=== PATIENT | male | born 1950 | race Caucasian/White ===

== ENCOUNTER 2016-09-19 12:39 | Outpatient (RCR) | payer MEDICARE, OTHER ==
[~2016-09-19 12:39] MED LIST: AMIT10TA6 PO; AMOX-358 PO; ASPI-504 PO; BUPR100T6 PO; CALC500T55 PO; CHOL10002 PO; EZET1TAB16 PO; FLC1T PO; HYDR-2997 PO; LISI1TAB8 PO; METH2.5T PO; METO-270 PO; MULT1CAP27 PO; NFLYR75C PO; OMEG10005 PO; PRED5TAB PO; ZOLP10TA PO
== END 2016-12-18 | disposition home or self-care (01) ==
LOC: PT 12:39
PROVIDERS: ATTEND Internal Medicine
DX: Z53.9 Procedure and treatment not carried out, unspecified reason (principal)

== ENCOUNTER → 2016-10-31 | Outpatient (CLI) | payer MEDICARE, OTHER ==
[2016-10-31 08:07] LABS: BASOPHILS % (AUTO) 0 % (0-2); EOSINOPHILS # (AUTO) 0.1 10^3uL; EOSINOPHILS % (AUTO) 1 % (0-4); LYMPHOCYTES # (AUTO) 0.9 X10^3; MEAN PLATELET VOLUME 9.7 FL (6.0-9.5); MONOCYTES # (AUTO) 0.4 X10^3; MONOCYTES % (AUTO) 6 % (3-11); NEUTROPHILS # (AUTO) 4.9 X10^3; NEUTROPHILS % (AUTO) 77 % (51-67); PLATELET COUNT 212 10^3uL (150-450); WHITE BLOOD COUNT 6.33 10^3uL (4.0-11.0)
[2016-10-31 08:08] LABS: MEAN CORPUSCULAR VOLUME 100 FL (80-100)
[2016-10-31 08:28] LABS: ALBUMIN 3.8 g/dL (3.4-5.0); ANION GAP 16.1 MEQ/L (3-15); CALCULATED IONIZED CALCIUM 4.1 mg/dL (3.8-4.6); TOTAL PROTEIN 6.5 g/dL (6.4-8.5)
== END ==
LOC: LAB 07:53
PROVIDERS: ATTEND Internal Medicine
DX: Z00.00 Encounter for general adult medical examination without abnormal findings (principal); I10 Essential (primary) hypertension; M54.5 Low back pain; Z87.39 Personal history of other diseases of the musculoskeletal system and connective tissue; Z12.5 Encounter for screening for malignant neoplasm of prostate; D64.9 Anemia, unspecified
CPT/HCPCS: 36415; 80053; 80061; 84443; 85025; G0103; 84153

== ENCOUNTER → 2016-11-14 | Outpatient (CLI) | payer MEDICARE, OTHER | LOC: RAD 08:36 | PROVIDERS: ATTEND Internal Medicine | DX: M85.89 Other specified disorders of bone density and structure, multiple sites (principal) | CPT/HCPCS: 77080 ==

== ENCOUNTER → 2016-11-24 | Outpatient (CLI) | payer MEDICARE, OTHER | LOC: RAD 11:34 | PROVIDERS: ATTEND Internal Medicine | DX: M54.5 Low back pain (principal) | CPT/HCPCS: 72158; A9579 ==

== ENCOUNTER → 2016-11-27 | Outpatient (CLI) | payer MEDICARE, OTHER ==
[2016-11-27 09:10] LABS: MEAN CORPUSCULAR HGB CONC 32.2 g/dL (31.0-37.0); MEAN PLATELET VOLUME 9.3 FL (6.0-9.5); WHITE BLOOD COUNT 5.98 10^3uL (4.0-11.0)
[2016-11-27 11:09] LABS: ALBUMIN 3.8 g/dL (3.4-5.0); ANION GAP 11.9 MEQ/L (3-15); CALCULATED IONIZED CALCIUM 4.1 mg/dL (3.8-4.6); TOTAL PROTEIN 6.5 g/dL (6.4-8.5)
== END ==
LOC: LAB 08:59
PROVIDERS: ATTEND Internal Medicine Rheumatology
DX: M06.09 Rheumatoid arthritis without rheumatoid factor, multiple sites (principal)
CPT/HCPCS: 36415; 80053; 85027; 85652

== ENCOUNTER → 2016-12-11 | Outpatient (CLI) | payer MEDICARE, OTHER ==
[2016-12-11 09:04] LABS: BASOPHILS % (AUTO) 1 % (0-2); EOSINOPHILS # (AUTO) 0.1 10^3uL; EOSINOPHILS % (AUTO) 3 % (0-4); LYMPHOCYTES # (AUTO) 1.1 X10^3; MEAN CORPUSCULAR HEMOGLOBIN 33.2 PG (26.0-34.0); MEAN CORPUSCULAR HGB CONC 32.5 g/dL (31.0-37.0); MEAN CORPUSCULAR VOLUME 102 FL (80-100); MEAN PLATELET VOLUME 9.4 FL (6.0-9.5); MONOCYTES # (AUTO) 0.3 X10^3; MONOCYTES % (AUTO) 7 % (3-11); NEUTROPHILS # (AUTO) 2.5 X10^3; NEUTROPHILS % (AUTO) 61 % (51-67); PLATELET COUNT 206 10^3uL (150-450); WHITE BLOOD COUNT 4.17 10^3uL (4.0-11.0)
[2016-12-11 09:33] LABS: ALBUMIN 4.1 g/dL (3.4-5.0); ANION GAP 16.2 MEQ/L (3-15); PHOSPHORUS 3.8 mg/dL (2.4-4.9)
== END ==
LOC: LAB 08:53
PROVIDERS: ATTEND Internal Medicine
DX: N18.3 Chronic kidney disease, stage 3 (moderate) (principal); D63.8 Anemia in other chronic diseases classified elsewhere; M85.88 Other specified disorders of bone density and structure, other site
CPT/HCPCS: 36415; 80069; 82306; 85025

== ENCOUNTER → 2016-12-19 | Outpatient (CLI) | payer MEDICARE, OTHER ==
--- NOTE | 2016-12-19 13:21 | Diagnostic Imaging Report ---
INDICATION: Renal cyst noted on outside CT scan. COMPARISON: The outside CT scan is not available for comparison. FINDINGS: The right kidney measures 8.9 x 4.7 x 5.2 cm. The cortex appears normal with no masses. No hydronephrosis. No calculi. The left kidney measures 11.3 x 4.8 cm. There is a benign cortical cyst present measuring 5 x 4 cm. There is also a second cyst measuring 3 x 3 cm. No solid masses are seen. No hydronephrosis. IMPRESSION: There are two cysts present in the left kidney with the largest measuring 5 cm. These do have a benign appearance. Dictated by: Dictated on workstation # [id number]
== END ==
LOC: RAD 08:46
PROVIDERS: ATTEND Internal Medicine
DX: N28.1 Cyst of kidney, acquired (principal)
CPT/HCPCS: 76770

== ENCOUNTER → 2017-01-18 | Outpatient (CLI) | payer MEDICARE, OTHER ==
--- NOTE | 2017-01-18 17:19 | Diagnostic Imaging Report ---
INDICATION: Exacerbation of COPD. EXAMINATION: PA and lateral chest. FINDINGS: There is cardiomegaly with mild pulmonary vascular congestion and some interstitial edema. There is no effusion. IMPRESSION: Mild congestive heart failure. Dictated by: Dictated on workstation # [id number]
== END ==
LOC: RAD 15:42
PROVIDERS: ATTEND Internal Medicine
DX: J44.1 Chronic obstructive pulmonary disease with (acute) exacerbation (principal); I50.9 Heart failure, unspecified
CPT/HCPCS: 71020

== ENCOUNTER → 2017-01-22 | Outpatient (CLI) | payer MEDICARE, OTHER ==
--- NOTE | 2017-01-22 13:33 | Diagnostic Imaging Report ---
INDICATION: Difficulty breathing. Two views. COMPARISON: 01/18/2017 FINDINGS: Today's radiograph is more inspiratory. The cardiomediastinal silhouette is normal. The kenia are within normal limits. The lungs showed no alveolar infiltrate or mass. A few interstitial changes are seen in the bases which may be chronic. Old right rib fractures are present and there is chronic deformity of the right acromioclavicular joint. IMPRESSION: 1. Few areas of interstitial change in the lung bases which may be chronic rather than acute. Otherwise negative study. Dictated by: Dictated on workstation # [id number]
== END ==
LOC: RAD 12:45
PROVIDERS: ATTEND Internal Medicine
DX: I50.9 Heart failure, unspecified (principal); J40 Bronchitis, not specified as acute or chronic
CPT/HCPCS: 71020

== ENCOUNTER 2017-01-25 06:28 | Day surgery (SDC) | payer MEDICARE, OTHER ==
[~2017-01-25] VITALS: Ht 177.8 cm; Wt 70.5 kg
[~2017-01-25 06:28] MED LIST changes: +LACTATED RINGERS 1,000 ML IV ONE; +SODIUM CHLORIDE FLUSH 3 ML SYR ONE
--- OUTSIDE RECORDS SUMMARY | 2017-01-25 06:32 | XMS REPORT | Continuity of Care Document ---
Author Author [facility] Organization [facility] Address Unknown Phone Unavailable Care Team Providers Care Retail Advisor Name Role Phone NYA CABRALES MD PCP [phone] Insurance Providers Payer Name Policy Number Subscriber Name Relationship [facility] [id number] Nilson Campbell 20 Self / Same As Patient Chief Complaint and Reason for Visit Chief Complaint Pain Reason for Visit Chronic back pain Rheumatoid arthritis Problems Medical Problems Problem Onset Date Status Endoscopy of urinary bladder Unknown Resolved Dog bite ~12/20/2014 Active Chronic back pain Unknown Active Rheumatoid arthritis Unknown Active Medications Medication Dose Route Sig Days/Qty Instructions Order Date Discontinued Date Status Zolpidem Tartrate 10 Mg ORAL BEDTIME 10/31/13 Active Hydrocodone Bit/Acetaminophen 2 Tab ORAL THREE TIMES A DAY 10/31/13 Active Aspirin 81 Mg ORAL TWICE A DAY 10/31/13 Active Bupropion Hcl 100 Mg ORAL DAILY 10/31/13 Active Ezetimibe/Simvastatin 0.5 Tab ORAL EVERY OTHER DAY 10/31/13 Active Prednisone 5 Mg ORAL DAILY 10/31/13 Active Laurel-3 Fatty Acids 1,000 Mg ORAL DAILY 10/31/13 Active Metoprolol Succinate 0.5 Tab ORAL DAILY 10/31/13 Active Multivitamin 1 Each ORAL DAILY 10/31/13 Active Amitriptyline Hcl 10 Mg ORAL DAILY 10/31/13 12/20/14 Discontinued Calcium Carbonate 500 Mg ORAL DAILY 10/31/13 Active Pregabalin 75 Mg ORAL TWICE A DAY 05/06/14 Active Folic Acid 1 Mg ORAL DAILY 05/06/14 Active Methotrexate Sodium 3 Tab ORAL TU/SAT 05/06/14 Active Lisinopril/Hydrochlorothiazide 1 Each ORAL DAILY 12/20/14 Active Cholecalciferol 1,000 Unit ORAL TWICE A DAY 12/20/14 Active Amoxicillin/Potassium Clav 1 Each ORAL TWICE A DAY 19 Qty 12/20/14 Active Social History No social history. Hospital Discharge Instructions No hospital discharge instructions. Plan of Care Discharge Date 01/05/15 9:15pm Disposition 01 HOME OR SELF-CARE Condition at Discharge Stable Instructions/Education Provided Hydrocodone/Acetaminophen (By mouth) Chronic Pain Management (ED) Prescriptions See Medications Section Referrals NYA CABRALES MD Additional Instructions/Education Contact Dr. Cabrales's office in the morning to get your pain medication refilled. Some of your test results may not be complete prior to your leaving the Emergency Department. The Emergency Department is not authorized to give test results over the phone. Please contact the doctor's office listed in this packet of information for your final results. Follow up with your primary care physician or return to the Emergency Department for worsening or worrisome symptoms. * Emergency Department phone number: [phone], x [phone]* MEDICAL RECORD If you need copies of your X-rays, call [phone]. If you need copies of your medical record, including lab results, a signed authorization for release of records will be required. A telephone call for release of Health Information is not allowed. BILLING Billing can sometimes be confusing and frustrating. To help avoid confusion in the future, please take a moment to acquaint yourself with the billing parties for services. SERVICE BILLING LIBERTARIAN Emergency Room Services [facility] Physician Services [facility] X-rays [facility] Patients will receive bills for services from the appropriate provider. If you have any questions about your [facility] bill, our staff will be happy to assist you. Please call [phone], and ask for the billing department. THANK YOU for choosing [facility] as your emergency care provider! Functional Status No functional status results. Allergies, Adverse Reactions, Alerts Allergen Type Severity Reaction Status Last Updated No Known Drug Allergies Active 10/31/13 Immunizations Name Given Type Status Tdap 12/20/14 Administered Completed Vital Signs Acute Vital Signs Vital Response Date/Time Temperature (Fahrenheit) 98.0 Pulse 75 bpm Respirations 18 Height 5 ft 9 in Weight 159 lb Body Mass Index 23.0 kg/m^2 Results Test Source Date Result Interp. Ref. Range Comments Alanine Aminotransferase (ALT/SGPT) December 28, 2014 9:47am 40 U/L N 30- 65 Albumin December 28, 2014 9:47am 3.9 g/dL N 3.4-5.0 Albumin/Globulin Ratio December 28, 2014 9:47am 1.444 N 1.1-1.8 Alkaline Phosphatase December 28, 2014 9:47am 77 U/L N 38-126 Anion Gap December 28, 2014 9:47am 12.2 MEQ/L N 3-15 Aspartate Amino Transf (AST/SGOT) December 28, 2014 9:47am 35 U/L N 15-37 BUN/Creatinine Ratio December 28, 2014 9:47am 22 H 10-20 Basophils # (Auto) December 28, 2014 9:47am 0.0 10^3uL Basophils (%) (Auto) December 28, 2014 9:47am 0 % N 0-2 Blood Urea Nitrogen December 28, 2014 9:47am 24 mg/dL H 7-18 Calcium Level December 28, 2014 9:47am 8.9 mg/dL N 8.8-10.8 Calcium/Ionized Calcium Ratio December 28, 2014 9:47am 4.1 mg/dL N 3.8-4.6 Calculated Osmolality December 28, 2014 9:47am 284 mosm/L N 280-300 Carbon Dioxide Level December 28, 2014 9:47am 28 mmol/L N 22-29 Chloride Level December 28, 2014 9:47am 107 mmol/L N 98-108 Cholesterol Level October 23, 2014 7:38am 141 mg/dL N 50-200 Cholesterol Risk Factor October 23, 2014 7:38am 2.3 N 0.0-5.0 Creatinine December 28, 2014 9:47am 1.08 mg/dL N 0.8-1.5 Differential Total Cells Counted July 17, 2012 7:41am 100 Eosinophils # (Auto) December 28, 2014 9:47am 0.1 10^3uL Eosinophils % July 17, 2012 7:41am 2 % N 0-5 Eosinophils (%) (Auto) December 28, 2014 9:47am 1 % N 0-4 Erythrocyte Sedimentation Rate November 06, 2014 9:47am 21 mm/hr H 0-19 Estimat Glomerular Filtration Rate December 28, 2014 9:47am 83.8 Estimated GFR (Non- December 28, 2014 9:47am 69.3 Glucose Level December 28, 2014 9:47am 129 mg/dL H 70-110 HDL Cholesterol October 23, 2014 7:38am 62 mg/dL H 40-60 HDL Triglycerides October 23, 2014 7:38am 74 mg/dL N 10-150 Hematocrit December 28, 2014 9:47am 40.00 % N 39.00-50.00 Hemoglobin December 28, 2014 9:47am 13.0 g/dL L 13.5-17.0 LDL Cholesterol (Measured) October 23, 2014 7:38am 64 mg/dL N 50-130 LDL Cholesterol, Calculated September 16, 2013 7:32am 71 mg/dL 0-130 Lymphocytes # (Auto) December 28, 2014 9:47am 1.3 X10^3 Lymphocytes % July 17, 2012 7:41am 14 % L 16-34 Lymphocytes (%) (Auto) December 28, 2014 9:47am 18 % L 20-46 Mean Corpuscular Hemoglobin December 28, 2014 9:47am 32.8 PG N 26.0-34.0 Mean Corpuscular Hemoglobin Concent December 28, 2014 9:47am 32.5 g/dL N 31.0-37.0 Mean Corpuscular Volume December 28, 2014 9:47am 101 FL H 80-100 Mean Platelet Volume December 28, 2014 9:47am 8.7 FL N 6.0-9.5 Monocytes # (Auto) December 28, 2014 9:47am 0.5 X10^3 Monocytes % July 17, 2012 7:41am 5 % N 2-12 Monocytes (%) (Auto) December 28, 2014 9:47am 7 % N 3-11 Neutrophils # (Auto) December 28, 2014 9:47am 5.5 X10^3 Neutrophils (%) (Auto) December 28, 2014 9:47am 73 % H 51-67 Platelet Count December 28, 2014 9:47am 223 10^3uL N 150-450 Potassium Level December 28, 2014 9:47am 3.8 mmol/L DN 3.5-5.1 Prostate Specific Antigen October 23, 2014 7:38am 0.7 ng/mL 0.0-4.5 AUA PSA Best Practice Guidelines: Age-Adjusted PSA Values by Ethnic Group Age Range Asians - Caucasians Americans 40-49 0-2.0 0-2.0 0-2.5 50-59 0-3.0 0-4.0 0-3.5 60-69 0-4.0 0-4.5 0-4.5 70-79 0-5.0 0-5.5 0-6.5 Red Blood Count December 28, 2014 9:47am 3.96 10^6uL L 4.50-5.50 Red Cell Distribution Width December 28, 2014 9:47am 14.8 % N 11.8-15.6 Segmented Neutrophils % July 17, 2012 7:41am 79 % H 50-70 Sodium Level December 28, 2014 9:47am 144 mmol/L N 135-150 Thyroid Stimulating Hormone (TSH) October 23, 2014 7:38am 1.51 UIU/ML N 0.46-4.68 Total Bilirubin December 28, 2014 9:47am 0.3 mg/dL N 0.1-1.0 Total Protein December 28, 2014 9:47am 6.6 g/dL N 6.4-8.5 Triglycerides Level September 16, 2013 7:32am 53 mg/dL 0-149 Uric Acid October 23, 2014 7:38am 6.0 MG/DL N 3.8-7.1 Urine Bacteria February 17, 2014 9:30am Rare /HPF Urine Bilirubin September 18, 2013 10:30am Negative Negative Urine Blood September 18, 2013 10:30am 1+ H Negative Urine Clarity September 18, 2013 10:30am Clear Urine Collection Type September 18, 2013 10:30am Clean catch Urine Color September 18, 2013 10:30am Hooper Urine Glucose (UA) September 18, 2013 10:30am Negative Negative Urine Ketones September 18, 2013 10:30am Trace H Negative Urine Leukocyte Esterase September 18, 2013 10:30am Negative Negative Urine Mucus February 17, 2014 9:30am 2+ H Urine Nitrite September 18, 2013 10:30am Negative Negative Urine Protein September 18, 2013 10:30am Negative Negative Urine RBC February 17, 2014 9:30am 10-20 /HPF H Urine Specific [place] September 18, 2013 10:30am >=1.030 1.005-1.030 Urine Squamous Epithelial Cells September 18, 2013 10:30am 0-2 /LPF Urine Urobilinogen September 18, 2013 10:30am 0.2 mg/dL 0.2-1.0 Urine WBC February 17, 2014 9:30am None seen /HPF Urine pH September 18, 2013 10:30am 5.5 5.0 - 8.0 VLDL Cholesterol October 23, 2014 7:38am 15 mg/dL N 4.00-40.00 Vitamin B12 Level September 16, 2013 7:32am 470 pg/mL 213-816 Volume Urine Centrifuged February 17, 2014 9:30am 12 ml White Blood Count December 28, 2014 9:47am 7.51 10^3uL N 4.0-11.0 Procedures Procedure Status Date Provider(s) MRI LUMBAR SPINE W/O & W/DYE completed 12/29/14 completed 12/29/14 CT THORAX W/O DYE completed 12/24/14 IMMUNIZATION ADMIN completed 12/20/14 TDAP VACCINE 7 YRS/> IM completed 12/20/14 EMERGENCY DEPT VISIT completed 12/20/14 ROUTINE VENIPUNCTURE completed 12/28/14 COMPREHEN METABOLIC PANEL completed 12/28/14 COMPLETE CBC W/AUTO DIFF WBC completed 12/28/14 Encounters Encounter Location Date/Time Registered Emergency Room [facility] 01/05/15 8:03pm Registered [facility] 01/05/15 10:00am Registered Clinic [facility] 12/29/14 10:15am Registered Clinic [facility] 12/28/14 9:34am Registered [facility] 12/24/14 11:11am Departed Emergency Room [facility] 12/20/14 6:45pm Recent Diagnosis
[2017-01-25 06:36] VITALS: BP 133/74
[2017-01-25] MEDS ORDERED: MIDAZOLAM 2 MG/2 ML (VERSED) VIAL ONE (07:19)
[2017-01-25] MEDS ORDERED: ALFENTANIL 500 MCG/ML (ALFENTA) 5 ML AMP IV ONE (07:19)
[2017-01-25] MEDS ORDERED: PROPOFOL 20 ML IV ONE (07:19)
[2017-01-25 08:05] VITALS: BP 147/93
[2017-01-25 08:18] VITALS: BP 139/76
--- NOTE | 2017-01-25 09:31 | OPERATIVE REPORT ---
DATE OF OPERATION: 01/25/2017 PRE-OPERATIVE DIAGNOSIS: Screening colonoscopy. POST-OPERATIVE DIAGNOSIS: Mild sigmoid diverticulosis. OPERATIVE PROCEDURE: Total colonoscopy. SURGEON: Serge Adams MD ANESTHESIA: Monitored anesthesia care. FINDINGS: 1. The bowel prep was good. 2. No neoplasia, angiodysplasia, or inflammation were seen. 3. There are a few scattered diverticula in the sigmoid colon. INDICATION: Mr. Campbell is a 66-year-old referred by Dr. Cabrales for colonoscopy screening. He has not had any bowel habit changes and his family history is negative for colorectal cancer. DESCRIPTION OF PROCEDURE: The patient was informed of the risks and benefits and agreed to proceed. He was placed in the left lateral decubitus position and was administered IV sedation. When properly sedated a rectal exam was performed, which was normal. The lighted endoscope was passed into the rectum and slowly advanced along the colon to the cecum. The ileocecal valve and the appendiceal orifice were easily seen. The scope was slowly brought back through the ascending, transverse, descending, and sigmoid colon. No polyps or neoplasia were seen. There were diverticula seen in the sigmoid region. The rectum appeared normal on regular view and retroflexion. The scope was removed completing the procedure. The patient tolerated the procedure without complications. With this normal colonoscopy, I recommend a repeat screening colonoscopy in 10 years.
[2017-01-26] MEDS ORDERED: LACTATED RINGERS 1,000 ML IV SCH (05:00)
[2017-01-26] MEDS ORDERED: SODIUM CHLORIDE FLUSH 3 ML SYR IV PRN (05:00)
== END 2017-01-25 08:21 | disposition home or self-care (01) ==
LOC: ASC 06:28
PROVIDERS: ATTEND Surgery
DX: Z12.11 Encounter for screening for malignant neoplasm of colon (principal); K57.30 Diverticulosis of large intestine without perforation or abscess without bleeding; I10 Essential (primary) hypertension; I25.10 Atherosclerotic heart disease of native coronary artery without angina pectoris; Z95.5 Presence of coronary angioplasty implant and graft
CPT/HCPCS: 36415; 84132; 93005; G0121; J2250; J7120